=== PATIENT | female | born 1960 | race Caucasian/White ===

== ENCOUNTER 2018-04-26 10:10 | Emergency (ER) | payer OTHER ==
[2018-04-26] MEDS: MECLIZINE 12.5 MG TAB PO (10:37)
[2018-04-26] MEDS: IBUPROFEN 800 MG TAB PO (10:38)
== END 2018-04-26 12:53 | disposition home or self-care (01) ==
LOC: E/R 10:10
DX: R42 Dizziness and giddiness (principal); R51 Headache
CPT/HCPCS: 70450; 82962; 93005; 99284-25